=== PATIENT | female | born 1985 | race Caucasian/White ===

== ENCOUNTER 2023-12-29 13:30 | Outpatient (CLI) | payer BC | END 2023-12-29 13:31 | disposition home or self-care (01) | LOC: BICULT 13:30 | PROVIDERS: ATTEND Family Medicine | DX: E89.0 Postprocedural hypothyroidism (principal) | CPT/HCPCS: 76536 ==

== ENCOUNTER 2024-07-23 10:00 | Observation (INO) | payer BC ==
[2024-07-23] MEDS ORDERED: Midazolam HCl 2 mg/2 ml Vial ONE (11:21)
[2024-07-23] MEDS ORDERED: fentaNYL 50 mcg/mL 1 mL Vial ONE ×5 (11:21→15:27)
[2024-07-23] MEDS ORDERED: Bupivacaine PF 0.5% 30 ML VIAL ONE (11:22)
[2024-07-23] MEDS ORDERED: Bupivacaine HCl 0.5%/Epinephrine 1:200,000/PF 30 ml Vial ONE (12:00)
[2024-07-23] MEDS ORDERED: Lidocaine 1% PF 5 ML VIAL ONE (12:22)
[2024-07-23] MEDS ORDERED: PROPOFOL 20 ML ONE (12:22)
[2024-07-23] MEDS ORDERED: CEFAZOLIN 2 GM VIAL ONE (12:29)
[2024-07-23] MEDS ORDERED: Sodium Chloride 0.9% 100 ML ONE (12:29)
[2024-07-23] MEDS ORDERED: traMADol HCl 50 MG TAB PO PRN ×2 (12:45)
[2024-07-23] MEDS ORDERED: Zolpidem Tartrate 5 MG TAB PO PRN (12:45)
[2024-07-23] MEDS ORDERED: Ondansetron PF 4 MG/2 ML Vial IVP PRN (12:45)
[2024-07-23] MEDS ORDERED: Promethazine HCl 25 MG/ML VIAL IM PRN (12:45)
[2024-07-23] MEDS ORDERED: Ropivacaine 0.2% 550 ML 550 ML NERVE BLCK SCH (12:45)
[2024-07-23] MEDS ORDERED: Dexamethasone 20 MG/5 ML VIAL ONE (12:55)
[2024-07-23] MEDS ORDERED: Ondansetron PF 4 MG/2 ML Vial ONE (12:55)
[2024-07-23] MEDS ORDERED: HYDROmorphone 0.5 MG/0.5 ML SYRINGE ONE ×2 (14:10→14:40)
[2024-07-23] MEDS ORDERED: HYDROcodone/Acetaminophen 10/325 mg Tablet ONE (15:28)
[2024-07-23] MEDS: HYDROcodone/Acetaminophen 10/325 mg Tablet PO PRN ×2 (17:40→23:45)
[2024-07-24] MEDS: Levothyroxine 175 MCG TAB PO SCH (05:33)
[2024-07-24] MEDS ORDERED: LEVOTHYROXINE SOD PO SCH (06:00)
[2024-07-24 07:48] VITALS: TEMP 98
[2024-07-24] MEDS: DULoxetine 30 MG CAP PO SCH (08:39)
[2024-07-24] MEDS: Liothyronine Sodium 5 MCG TAB PO SCH (08:39)
[2024-07-24] MEDS: BuPROPion XL 150 MG ER.TAB PO SCH (08:39)
[2024-07-24 10:44] VITALS: BMI 39.1
[2024-07-24 11:51] VITALS: BP 163/101
== END 2024-07-24 12:30 | disposition home or self-care (01) ==
LOC: SDC 10:00 → SURG A 16:07
PROVIDERS: ADMIT Orthopaedic Surgery; ATTEND Orthopaedic Surgery
PROC: 0QSJ04Z Reposition Right Fibula with Internal Fixation Device, Open Approach (ICD-10-PCS; principal; 2024-07-24)
PROC: 0QSG0ZZ Reposition Right Tibia, Open Approach (ICD-10-PCS; 2024-07-24)
PROC: 0QSG0ZZ Reposition Right Tibia, Open Approach (ICD-10-PCS; 2024-07-24)
PROC: 3E0T3BZ Introduction of Anesthetic Agent into Peripheral Nerves and Plexi, Percutaneous Approach (ICD-10-PCS; 2024-07-24)
DX: S82.851A Displaced trimalleolar fracture of right lower leg, initial encounter for closed fracture (principal); J45.909 Unspecified asthma, uncomplicated; G40.909 Epilepsy, unspecified, not intractable, without status epilepticus; G43.909 Migraine, unspecified, not intractable, without status migrainosus; E07.9 Disorder of thyroid, unspecified; Z90.89 Acquired absence of other organs; Z79.890 Hormone replacement therapy; Z79.899 Other long term (current) drug therapy; W01.0XXA Fall on same level from slipping, tripping and stumbling without subsequent striking against object, initial encounter
CPT/HCPCS: A4306; C1713; J0665; J1100; J1170; J2250; J2405; J2704; J2795; J3010

== ENCOUNTER 2024-09-10 09:45 | Outpatient (CLI) | payer BC | END 2024-09-10 09:46 | disposition home or self-care (01) | LOC: BICULT 09:45 | PROVIDERS: ATTEND Family Medicine | DX: E89.0 Postprocedural hypothyroidism (principal) | CPT/HCPCS: 76536 ==